=== PATIENT | male | born 1955 | race Caucasian/White ===

== ENCOUNTER → 2018-03-02 09:56 | Outpatient (CLI) | payer OTHER, SELFPAY ==
--- NOTE | 2018-03-02 | DI.CT.S_ITS ---
PROCEDURE: CT ABDOMEN WO/W CON INDICATIONS: Kidney masses TECHNIQUE: Optional 5 mm thick noncontrast images acquired from the diaphragm to the iliac crests. After the administration of intravenous contrast, 5 mm thick images again acquired from the diaphragm to the iliac crests in the arterial and urographic phases. 5 mm thick coronal and sagittal reformats were then acquired. For radiation dose reduction, the following was used: automated exposure control, adjustment of mA and/or kV according to patient size. COMPARISON: [facility] , CT, ABDOMEN W CONTRAST, 03/11/2010, 8:13. [facility] , CT, ABDOMEN W CONTRAST, 11/27/2010, 8:06. [facility] , CT, ABDOMEN W&W/O CONTRAST, 01/05/2011, 7:06. [facility] , CT, ABD/PELVIS W&WO CON (PNL), 09/02/2011, 11:02. [facility], CT, ABDOMEN W&W/O CONTRAST, 12/01/2013, 12:58. [facility], [place], RENAL COMPLETE, 10/09/2014, 11:20. [facility], CT, ABDOMEN W&WO CONTRAST, 07/29/2015, 9:28. [facility], CT, ABDOMEN W&WO CONTRAST, 06/21/2017, 9:19. FINDINGS: Image quality: Excellent. Lung bases: Lung bases are clear. Heart size is normal. Genitourinary: No nephrolithiasis or hydronephrosis. Bilateral simple exophytic renal cysts are unchanged. The exophytic enhancing mass in the medial upper pole of the right kidney appears stable in size, now measuring 2.3 x 3.0 x 2.3 cm compared to 2.1 x 3.2 x 2.5 cm on most recent prior study. The mass however has increased in size over time since 2009. The exophytic enhancing mass in the anterior upper pole of the left kidney is slightly larger measuring 2.1 x 2.3 cm compared to 1.9 x 1.9 cm on last study. This mass has developed since August 2011 and has increased in size since November 2013. Other solid organs: Liver is normal in size and enhancement. Gallbladder appears normal. Biliary system is non dilated. Pancreas enhances normally. Spleen is normal in size and enhancement. The 2.7 cm left adrenal mass containing macro fat is unchanged. Peritoneum and bowel: Unenhanced bowel loops are normal in wall thickness and caliber. No free fluid or air. Nodes and vessels: No retroperitoneal or mesenteric adenopathy by size criteria. Aorta and inferior vena cava are normal in caliber. Bones: No suspicious bony lesions. No vertebral body compression fractures. Miscellaneous: No ventral hernias. IMPRESSION: 1. 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 No evidence of metastatic disease on the areas included. 2. Bilateral simple renal cortical cysts appear stable. No nephrolithiasis seen on current study. 3. Stable left adrenal myelolipoma Dictated by: Kain Crowe M.D. on 03/02/2018 at 12:34 Approved by: Kain Crowe M.D. on 03/02/2018 at 12:56
[2018-03-02 10:45] LABS: Estimated Glomerular Filt Rate 55.9 mL/min (>60)
== END ==
PROVIDERS: PCP Family Medicine; Visit Provider Urology
DX: N28.89 Other specified disorders of kidney and ureter (principal); D17.79 Benign lipomatous neoplasm of other sites
CPT/HCPCS: 36415; 74170; 82565; 84153; Q9967

== ENCOUNTER → 2018-09-22 12:17 | Outpatient (CLI) | payer OTHER, SELFPAY ==
--- NOTE | 2018-09-22 | DI.CT.S_ITS ---
PROCEDURE: CT ABDOMEN WO/W CON INDICATIONS: RENAL MASSES TECHNIQUE: Optional 5 mm thick noncontrast images acquired from the diaphragm to the iliac crests. After the administration of intravenous contrast, 5 mm thick images again acquired from the diaphragm to the iliac crests in the arterial and urographic phases. 5 mm thick coronal and sagittal reformats were then acquired. For radiation dose reduction, the following was used: automated exposure control, adjustment of mA and/or kV according to patient size. COMPARISON: [facility], CT, CT ABDOMEN WO/W CON, 03/02/2018, 10:51. [facility], [place], RENAL COMPLETE, 10/09/2014, 11:20. [facility], CT, ABDOMEN W&WO CONTRAST, 07/29/2015, 9:28. [facility], CT, ABDOMEN W&WO CONTRAST, 06/21/2017, 9:19. FINDINGS: Image quality: Excellent. Lung bases: Lung bases are clear. Heart size is normal. Genitourinary: At the superior pole of the right kidney medially, there is an enhancing solid mass seen, as on series 3 image 32 that measures 3.3 x 2.2 cm in greatest axial dimension. A small amount of calcification can be seen within this mass. At the superior pole of the left kidney anteriorly, there is an enhancing mass seen that measures 2 x 2.1 cm, which is stable compared to the prior examination. Numerous simple appearing, nonenhancing renal cysts can be seen on both sides. No chelo nephrolithiasis can be seen. The kidneys overall demonstrate normal size. The kidneys enhance symmetrically. Other solid organs: Liver is normal in size and enhancement. Gallbladder wall does not appear thickened. Biliary system is non dilated. Pancreas enhances normally. Spleen is normal in size and enhancement. There is a fat-containing left adrenal nodule seen, as on series 2 image 34, as before. No right adrenal nodules. Peritoneum and bowel: Unenhanced bowel loops are normal in wall thickness and caliber. No free fluid or air. Nodes and vessels: No retroperitoneal or mesenteric adenopathy by size criteria. Aorta and inferior vena cava are normal in caliber. Bones: No suspicious bony lesions. No vertebral body compression fractures. Miscellaneous: No ventral hernias. IMPRESSION: An enhancing mass seen at the superior pole of the right kidney, which is slightly increased in size compared to the prior examination. There is an enhancing mass at the superior pole the left kidney anteriorly, which is stable. These lesions are highly suspicious for bilateral renal cell carcinomas. There is a stable fat containing lesion involving the left adrenal gland, which is attributed to benign myelolipoma. Note is made of bilateral simple appearing renal cysts. Dictated by: González Dang M.D. on 09/22/2018 at 14:02 Approved by: González Dang M.D. on 09/22/2018 at 14:09
== END ==
PROVIDERS: PCP Family Medicine; Visit Provider Urology
DX: N28.89 Other specified disorders of kidney and ureter (principal); N28.1 Cyst of kidney, acquired; D17.79 Benign lipomatous neoplasm of other sites
CPT/HCPCS: 74170; Q9967

== ENCOUNTER → 2019-04-05 12:44 | Outpatient (CLI) | payer OTHER, SELFPAY ==
--- NOTE | 2019-04-05 | DI.CT.S_ITS ---
PROCEDURE: CT ABDOMEN WO/W CON INDICATIONS: RENAL MASS TECHNIQUE: Optional 5 mm thick noncontrast images acquired from the diaphragm to the iliac crests. After the administration of intravenous contrast, 5 mm thick images again acquired from the diaphragm to the iliac crests in the arterial and urographic phases. 5 mm thick coronal and sagittal reformats were then acquired. For radiation dose reduction, the following was used: automated exposure control, adjustment of mA and/or kV according to patient size. COMPARISON: [facility], CT, ABDOMEN W&WO CONTRAST, 06/21/2017, 9:19. [facility], CT, ABDOMEN W&WO CONTRAST, 07/29/2015, 9:28. [facility], CT, CT ABDOMEN WO/W CON, 09/22/2018, 12:25. [facility], CT, CT ABDOMEN WO/W CON, 03/02/2018, 10:51. FINDINGS: Image quality: Excellent. Lung bases: Lung bases are clear. Heart size is normal. Genitourinary: At the medial right upper renal cortex there is a 2.6 x 2.3 cm mildly lobulated mass that has increased in size from July 2015 CT scanning, when only a slightly lobulated contour was present in this same area. This structure has slowly sequentially increased in size over time a second exophytic mass is present at the anterior border of the left kidney (series 3 image 35) measuring up to 2.0 cm and arising from 22 Hounsfield units to 34 Hounsfield units after contrast. A similar degree of contrast enhancement is seen at the right upper renal cortical mass medially. Other solid organs: Liver is normal in size and enhancement. Gallbladder appears normal. Biliary system is non dilated. Pancreas enhances normally. Spleen is normal in size and enhancement. No adrenal nodules. Peritoneum and bowel: Unenhanced bowel loops are normal in wall thickness and caliber. No free fluid or air. Nodes and vessels: No retroperitoneal or mesenteric adenopathy by size criteria. Aorta and inferior vena cava are normal in caliber. Bones: No suspicious bony lesions. No vertebral body compression fractures. Miscellaneous: No ventral hernias. IMPRESSION: The renal cortical mass lesions present at the upper medial border of the right renal cortex and the anterior border of the left mid renal cortex show slow continued interval enlargement over time, documented by prior CT scanning from 2013 forward. Each of these likely represent a small but low-grade renal cell carcinoma and known metastatic disease or invasion into adjacent structures is found. Renal cortical cysts are also present in this patient, stable over time and water in density. They appear simple. Dictated by: Pipe Shetty M.D. on 04/05/2019 at 17:22 Approved by: Pipe Shetty M.D. on 04/05/2019 at 17:28
== END ==
PROVIDERS: PCP Family Medicine; Visit Provider Urology
DX: N28.89 Other specified disorders of kidney and ureter (principal); N28.1 Cyst of kidney, acquired
CPT/HCPCS: 74170; Q9967

== ENCOUNTER → 2019-10-17 12:46 | Outpatient (CLI) | payer OTHER, SELFPAY ==
--- NOTE | 2019-10-17 | DI.CT.S_ITS ---
PROCEDURE: CT ABDOMEN WO/W CON INDICATIONS: Other specified disorders of kidney and ureter TECHNIQUE: Optional 5 mm thick noncontrast images acquired from the diaphragm to the iliac crests. After the administration of intravenous contrast, 5 mm thick images again acquired from the diaphragm to the iliac crests in the arterial and urographic phases. 5 mm thick coronal and sagittal reformats were then acquired. For radiation dose reduction, the following was used: automated exposure control, adjustment of mA and/or kV according to patient size. COMPARISON: [facility], CT, CT ABDOMEN WO/W CON, 04/05/2019, 15:48. FINDINGS: Image quality: Excellent. Lung bases: Lung bases are clear. Heart size is normal. Genitourinary: Exophytic right upper pole enhancing renal mass is stable, previously measuring 2.3 x 2.6 cm and currently measuring 2.4 x 2.6 cm. Exophytic left upper pole enhancing mass is also stable in size, previously measuring 2.9 x 2.2 cm and measuring 2.0 x 2.1 cm. No hydronephrosis. No new masses multiple bilateral renal cysts. Proximal ureters are unremarkable. Other solid organs: Liver is normal in size and enhancement. Gallbladder is unremarkable. Biliary system is non dilated. Pancreas enhances normally. Spleen is normal in size and enhancement. A small fat containing myelolipoma of the left adrenal, a benign lesion, is stable Peritoneum and bowel: Unenhanced bowel loops are normal in wall thickness and caliber. No free fluid or air. Nodes and vessels: No retroperitoneal or mesenteric adenopathy by size criteria. Aorta and inferior vena cava are normal in caliber. Bones: No suspicious bony lesions. No vertebral body compression fractures. Miscellaneous: No ventral hernias. IMPRESSION: 1. Small bilateral solid renal masses are stable. The right renal masses a maximum diameter of 2.6 cm and the left renal mass has a maximum diameter of 2.1 cm. These lesions likely both represent small renal cell carcinomas. 2. No evidence of metastatic disease. 3. Stable, benign myelolipoma of the left adrenal. Dictated by: Michele Padilla M.D. on 10/17/2019 at 17:37 Approved by: Michele Padilla M.D. on 10/17/2019 at 17:46
[2019-10-17 13:25] LABS: Blood Urea Nitrogen 30 mg/dL (9-20); Estimated Glomerular Filt Rate 47.1 mL/min (>60)
== END ==
PROVIDERS: PCP Family Medicine; Referring Provider Urology; Visit Provider Urology
DX: N28.89 Other specified disorders of kidney and ureter (principal); N28.1 Cyst of kidney, acquired; D17.79 Benign lipomatous neoplasm of other sites
CPT/HCPCS: 36415; 74170; 82565; 84520; Q9967

== ENCOUNTER → 2020-09-10 10:40 | Outpatient (CLI) | payer MEDICARE, OTHER, SELFPAY ==
--- NOTE | 2020-09-10 | DI.US.S_ITS ---
PROCEDURE: US RENAL COMPLETE INDICATIONS: BILATERAL RENAL MASSES TECHNIQUE: Real-time scanning was performed of the kidneys and bladder, with image documentation. COMPARISON: [facility], CT, CT ABDOMEN WO/W CON, 10/17/2019, 13:15. [facility], [place], RENAL COMPLETE, 10/09/2014, 11:20. FINDINGS: Right kidney: Right kidney measures 11.9 cm long; Right renal cortical thickness is 1.4 cm. Right kidney superior pole mass is not identified on this exam. Inferior pole lateral simple cyst measuring 6.4 cm. Superior pole simple cyst measuring 2.4 cm. Left kidney: Left kidney measures 13.1 cm long. Left renal cortical thickness is 1.5 cm. Left kidney superior pole mass is not identified on this exam. Inferior pole simple cyst measuring 6.2 cm. Superior pole laterally simple cyst measuring 5.1 cm. Bladder: Pre-void bladder volume is 221 mL. Post-void residual is 0 mL. Pre-void images demonstrate no intraluminal masses or stones. On pre-void images, both ureteral jets are noted with color Doppler interrogation. (Of note, ureteral jets may not be detectable in up to 25% of cases due to insufficient differences in specific gravity between ureteral and bladder urine). Miscellaneous: No free pelvic fluid. IMPRESSION: 1. Previously seen bilateral renal masses are not well seen with ultrasound. This could be followed with renal protocol MRI with IV contrast which may provide additional characterization. CT could be utilized to demonstrate stability in size. 2. Several simple cysts in both kidneys. 3. No hydronephrosis. No postvoid residual. Dictated by: Alejandor Pitts M.D. on 09/10/2020 at 11:21 Approved by: Alejandro Pitts M.D. on 09/10/2020 at 11:31
== END ==
PROVIDERS: PCP Family Medicine; Referring Provider Family Medicine; Visit Provider Urology
DX: N28.9 Disorder of kidney and ureter, unspecified (principal); N28.1 Cyst of kidney, acquired
CPT/HCPCS: 76770

== ENCOUNTER → 2021-02-25 13:33 | Outpatient (CLI) | payer MEDICARE, OTHER, SELFPAY ==
--- NOTE | 2021-02-25 | DI.CT.S_ITS ---
PROCEDURE: CT ABDOMEN WO/W CON INDICATIONS: RENAL MASS TECHNIQUE: Optional 5 mm thick noncontrast images acquired from the diaphragm to the iliac crests. After the administration of intravenous contrast, 5 mm thick images again acquired from the diaphragm to the iliac crests in the arterial and urographic phases. 5 mm thick coronal and sagittal reformats were then acquired. For radiation dose reduction, the following was used: automated exposure control, adjustment of mA and/or kV according to patient size. COMPARISON: CT, ABDOMEN W&WO CONTRAST, 06/21/2017, 9:19. [facility], CT, ABDOMEN W&WO CONTRAST, 07/29/2015, 9:28. [facility], US, US RENAL COMPLETE, 09/10/2020, 11:30. [facility], CT, CT ABDOMEN WO/W CON, 04/05/2019, 15:48. [facility], CT, CT ABDOMEN WO/W CON, 09/22/2018, 12:25. CT, CT ABDOMEN WO/W CON, 03/02/2018, 10:51. [facility], CT, CT ABDOMEN WO/W CON, 10/17/2019, 13:15. FINDINGS: Image quality: Excellent. Lung bases: Lung bases are clear. Heart size is normal. Genitourinary: There is a heterogeneous mass in the superior pole of the right kidney medially measuring 3.5 cm oblique AP x 2.4 cm oblique transverse x 3.2 cm oblique cephalocaudal. Compared to the prior examination on 10/17/2019, it appears unchanged changed in size. There is a 2.1 cm diameter solid appearing mass in the anterior cortex of the superior pole of the left kidney, which demonstrates postcontrast enhancement. Compared to the prior examination on 10/17/2019, it also appears unchanged changed in size. Kidneys are normal in size. There are multiple simple appearing renal cysts bilaterally. The largest cyst in the right kidney measures 5.5 x 6.4 cm. The largest cyst in left kidney measures 5.3 x 4.9 cm. Other solid organs: Mild hepatic steatosis. Liver is normal in size and enhancement. Gallbladder is normal. Biliary system is non dilated. Pancreas enhances normally. Spleen is normal in size and enhancement. No adrenal nodules. Peritoneum and bowel: Unenhanced bowel loops are normal in wall thickness and caliber. Moderate amount of stool in colon. No free fluid or air. Nodes and vessels: No retroperitoneal or mesenteric adenopathy by size criteria. Aorta and inferior vena cava are normal in caliber. Bones: No suspicious bony lesions. No vertebral body compression fractures. Degenerative changes in lower thoracic and lumbar spine. Miscellaneous: No ventral hernias. IMPRESSION: 1. Solid masses are seen in superior poles of the kidneys bilaterally. Both lesions are unchanged in size. 2. Bilateral simple appearing renal cysts. Dictated by: Lydia Pham M.D. on 02/25/2021 at 17:31 Approved by: Lydia Pham M.D. on 02/25/2021 at 17:56
== END ==
PROVIDERS: PCP Family Medicine; Referring Provider Urology; Visit Provider Urology
DX: N28.89 Other specified disorders of kidney and ureter (principal); N28.1 Cyst of kidney, acquired
CPT/HCPCS: 74170; Q9967

== ENCOUNTER → 2023-03-25 13:41 | Outpatient (CLI) | payer MEDICARE, OTHER, SELFPAY ==
--- NOTE | 2023-03-25 13:57 | DI.RAD.S_ITS ---
PROCEDURE: XR HUMERUS LT 2V INDICATIONS: Secondary malignant neoplasm of bone TECHNIQUE: 2 views of the humerus were acquired. COMPARISON: None. FINDINGS: Bones: No fractures or dislocations. Ill-defined sclerotic focus noted in the proximal humerus at the medial margin of the humeral neck. Soft tissues: No suspicious soft tissue calcifications. IMPRESSION: Ill-defined sclerotic lesion at the medial margin of the neck of the proximal humerus. Recommend MRI of the left shoulder or nuclear medicine bone scan for additional evaluation. Dictated by: Julia Dunne MD, PhD on 03/25/2023 at 14:33 Approved by: Julia Dunne MD, PhD on 03/25/2023 at 14:34
== END ==
PROVIDERS: Referring Provider Nurse Practitioner Adult Health; Visit Provider Nurse Practitioner Adult Health
DX: C61 Malignant neoplasm of prostate (principal); C79.51 Secondary malignant neoplasm of bone
CPT/HCPCS: 73060